=== PATIENT | male | born 1995 | race Two or more races ===

== ENCOUNTER 2017-02-13 15:47 | Emergency (ER) | payer OTHER ==
--- NOTE | 2017-02-13 17:41 | ER Document Report ---
HPI - HPI Patient complains to provider of: ankle pain Onset: Other Onset/Duration: Persistent Quality of pain: Achy Severity: Severe Pain Level: 4 Context: Patient presents emergency department with left ankle pain. He reports he slipped on oil the other day and hurt his left ankle. Reports history of fractured ankle for which he had screws placed. He reports since that time it' s been hurting. No complaints of other symptoms such as fever nausea vomiting diarrhea. Associated Symptoms: None Exacerbated by: Movement, Walking Relieved by: Denies Similar symptoms previously: Yes Recently seen / treated by doctor: No - DERM Skin Color: Normal Past Medical History - General Information source: Patient - Social History Smoking Status: Unknown if Ever Smoked Cigarette use (# per day): No Frequency of alcohol use: None Drug Abuse: Marijuana Occupation: [employer] Lives with: Family Family History: None Patient has suicidal ideation: No Patient has homicidal ideation: No Renal/ Medical History: Denies: Hx Peritoneal Dialysis Traumatic Medical History: Reports: Hx Fractures Past Surgical History: Reports: Hx Orthopedic Surgery Vertical Provider Document - CONSTITUTIONAL Agree With Documented VS: Yes Exam Limitations: No Limitations General Appearance: WD/WN, No Apparent Distress - INFECTION CONTROL TRAVEL OUTSIDE OF THE [place] IN LAST 30 DAYS: No - HEENT HEENT: Atraumatic, Normocephalic - NECK Neck: Supple - RESPIRATORY Respiratory: No Respiratory Distress O2 Sat by Pulse Oximetry: 97 - MUSCULOSKELETAL/EXTREMETIES Musculoskeletal/Extremeties: MAEW, FROM, Tender - left ankle, no obvious deformity, from ,no warmth,no erythema, no swelling - NEURO Level of Consciousness: Awake, Alert, Appropriate Motor/Sensory: No Motor Deficit - DERM Integumentary: Warm, Dry Adult Front & Back Diagram: 1 - c/o pain Course - Re-evaluation Re-evalutation: 02/13/17 17:46 pt updated on xray, plan of care, medication, importance to fu with ortho He verbalized understanding to all instructions. - Vital Signs Vital signs: Temp Pulse Resp BP Pulse Ox 98.5 F 115 H 16 132/75 H 97 02/13/17 15:52 02/13/17 15:52 02/13/17 15:52 02/13/17 15:52 02/13/17 15:52 - Diagnostic Test Radiology reviewed: Image reviewed, Reports reviewed - Diagnostic report text EXAM DESCRIPTION: ANKLE LEFT COMPLETE COMPLETED DATE/TIME: 02/13/2017 5:14 pm REASON FOR STUDY: 31-ANKLE PAIN, SLIPPED IN OIL COMPARISON: None. NUMBER OF VIEWS: Three views. TECHNIQUE: AP, lateral, and oblique radiographic images acquired of the left ankle. LIMITATIONS: None. FINDINGS : MINERALIZATION: Normal. BONES: Old healed fractures involving the distal tibial and fibular diaphyses with internal fixation hardware in the tibia. The distal interlocking screw has some surrounding lucency which can be seen with loosening. No acute fracture identified. JOINTS: No effusions. SOFT TISSUES: No soft tissue swelling. No foreign body. OTHER: No other significant finding. TECHNICAL DOCUMENTATION: JOB ID: [id number] [employer] - All Rights Reserved RAD/ANKLE LEFT COMPLETE IMPRESSION : NO DEFINITE ACUTE FRACTURE IDENTIFIED. OLD HEALED FRACTURES WITH INTERNAL FIXATION HARDWARE IN THE DISTAL TIBIA. THERE IS LUCENCY SURROUNDING THE INFERIOR INTERLOCKING SCREW WHICH CAN BE SEEN WITH LOOSENING. CORRELATE WITH ANY EVIDENCE OF INSTABILITY AND PRIOR IMAGING IF AVAILABLE Procedures - Immobilization Left Ankle Immobilizer type: Ankle stirrup Performed by: PCT Post-Proc Neuro Vasc Exam: Unchanged from pre-exam Discharge - Discharge Clinical Impression: Acute left ankle pain, Elevated blood pressure reading Condition: Stable Disposition: HOME, SELF-CARE Instructions: Ankle Stirrup Splint ([facility]), Use of Crutches ([facility]), Oral Narcotic Medication ([facility]) Additional Instructions: *You have been evaluated for an ankle injury *Rest/Ice/Elevate your ankle *Maintain the splint *Use your crutches *Follow up with orthopedics for recheck-call for an appointment *Take medication as prescribed *Return to ED for worsening condition, changes, needs Monitor your blood pressure. Your blood pressure was elevated today. This may be because you were anxious, in pain or because you need medication. It is important to follow up with your primary care provider for full evaluation. Prescriptions: Hydrocodone/Acetaminophen [[place] 5-325 Tablet] 1 each PO QID #15 tablet Forms: Elevated Blood Pressure, Return to Work Referrals: [email or web address] [Provider Group] - Follow up in 3-5 days
[2017-02-13 18:11] VITALS: BP 128/82
== END 2017-02-13 18:12 | disposition home or self-care (01) ==
LOC: ER 15:47
DX: M25.572 Pain in left ankle and joints of left foot (principal); R03.0 Elevated blood-pressure reading, without diagnosis of hypertension; W01.0XXA Fall on same level from slipping, tripping and stumbling without subsequent striking against object, initial encounter
CPT/HCPCS: 99283; 73610; L1902

== ENCOUNTER 2017-06-10 21:17 | Emergency (ER) | payer OTHER ==
[2017-06-10 21:47] VITALS: BP 154/80
--- NOTE | 2017-06-10 22:48 | RADIOLOGY REPORT (SQ) ---
EXAM DESCRIPTION: CHEST PA/LAT COMPLETED DATE/TIME: 06/10/2017 10:41 pm REASON FOR STUDY: cough COMPARISON: 08/27/2016 EXAM PARAMETERS: NUMBER OF VIEWS: two views TECHNIQUE: Digital Frontal and Lateral radiographic views of the chest acquired. RADIATION DOSE: NA LIMITATIONS: none FINDINGS: LUNGS AND PLEURA: No opacities, masses or pneumothorax. No pleural effusion. MEDIASTINUM AND HILAR STRUCTURES: No masses or contour abnormalities. HEART AND VASCULAR STRUCTURES: Heart normal size. No evidence for failure. BONES: No acute findings. HARDWARE: None in the chest. OTHER: No other significant finding. IMPRESSION: NO SIGNIFICANT RADIOGRAPHIC FINDING IN THE CHEST. TECHNICAL DOCUMENTATION: JOB ID: [id number] [email or web address] All Rights Reserved
[2017-06-10] MEDS ORDERED: AZITHROMYCIN 250 MG TABLET PO ONE (23:07)
[2017-06-10] MEDS ORDERED: GUAIFENESIN/D-METHORPHAN (200-20 MG) SYRUP 10 ML PO ONE (23:07)
--- NOTE | 2017-06-10 23:10 | ER Document Report ---
ED Respiratory Problem - General Chief Complaint: Cough Stated Complaint: COUGH AND VOMITING Time Seen by Provider: 06/10/17 22:43 Mode of Arrival: Ambulatory Information source: Patient Notes: Patient is a 21-year-old male who presents to the ER today for cough 1 week that is worsening, keeping him up at night with fever 101.2F last night. He admits to spitting up some blood after coughing and coughing so bad that it makes him vomit. He states it is keeping him up at night. He admits to body aches and chills, sweating. He denies any history of asthma, shortness of breath but does state that he wheezes after coughing spells. TRAVEL OUTSIDE OF THE [place] IN LAST 30 DAYS: No - Related Data Allergies/Adverse Reactions: amoxicillin Allergy (Verified 02/13/17 15:50) Past Medical History - General Information source: Patient - Social History Smoking Status: Never Smoker Family History: None Patient has suicidal ideation: No Patient has homicidal ideation: No Renal/ Medical History: Denies: Hx Peritoneal Dialysis Traumatic Medical History: Reports: Hx Fractures Past Surgical History: Reports: Hx Orthopedic Surgery Review of Systems - Review of Systems Constitutional: See HPI EENT: No symptoms reported Cardiovascular: No symptoms reported Respiratory: See HPI Gastrointestinal: No symptoms reported Genitourinary: No symptoms reported Male Genitourinary: No symptoms reported Musculoskeletal: No symptoms reported Skin: No symptoms reported Hematologic/Lymphatic: No symptoms reported Neurological/Psychological: No symptoms reported Physical Exam - Vital signs Vitals: Temp Pulse Resp BP Pulse Ox 98.7 F 85 20 154/80 H 98 06/10/17 21:44 06/10/17 21:44 06/10/17 21:44 06/10/17 21:44 06/10/17 21:44 - Notes Notes: PHYSICAL EXAMINATION: GENERAL: Mildly ill-appearing, but in no acute distress. HEAD: Atraumatic, normocephalic. EYES: Pupils equal round and reactive to light, extraocular movements intact, sclera anicteric, conjunctiva are normal. ENT: ear canals without erythema or foreign body, TMs pearly cali with good bony landmarks, nares patent, oropharynx erythematous without enlarged tonsils and without exudates. Moist mucous membranes. NECK: Normal range of motion, supple without lymphadenopathy LUNGS: Cough during exam, otherwise CTAB and equal. No wheezes rales or rhonchi. HEART: Regular rate and rhythm without murmurs ABDOMEN: Soft, no tenderness. No guarding, no rebound BACK: no vertebral tenderness, normal ROM GI/: no CVA tenderness EXTREMITIES: Normal range of motion, no pitting edema. No cyanosis. NEUROLOGICAL: Cranial nerves grossly intact. Normal sensory/motor exams. PSYCH: Normal mood, normal affect. SKIN: Warm, Dry, normal turgor, no rashes or lesions noted Course - Re-evaluation Re-evalutation: 06/10/17 23:08 Chest x-ray negative for any acute pathology today. - Vital Signs Vital signs: Temp Pulse Resp BP Pulse Ox 98.7 F 85 20 154/80 H 98 06/10/17 21:44 06/10/17 21:44 06/10/17 21:44 06/10/17 21:44 06/10/17 21:44 Discharge - Discharge Clinical Impression: Bronchitis Sinusitis Qualifiers: Sinusitis location: unspecified location Chronicity: acute Recurrence: non- recurrent Qualified Code(s): J01.90 - Acute sinusitis, unspecified Condition: Stable Disposition: HOME, SELF-CARE Instructions: Sinusitis ([facility]), Bronchitis With Bronchospasm (Wheezing) ([facility]) Additional Instructions: Return immediately for any new or worsening symptoms. Follow up with primary care provider, call tomorrow to make followup appointment. Prescriptions: Azithromycin [Zithromax 250 mg Tablet] 250 mg PO ASDIR PRN #6 tablet PRN Reason: D-Methorphan Hb/Prometh HCl [Promethazine-Dm Syrup] 5 ml PO Q8 PRN #120 ml PRN Reason: Forms: Return to Work
== END 2017-06-10 23:48 | disposition home or self-care (01) ==
LOC: ER 21:17
DX: J40 Bronchitis, not specified as acute or chronic (principal); J01.90 Acute sinusitis, unspecified; Z88.0 Allergy status to penicillin
CPT/HCPCS: 99283; 71020; J3490